=== PATIENT | male | born 1990 | race African-American/Black ===

== ENCOUNTER 2022-09-24 07:13 | Emergency (ER) | payer BC, OTHER ==
[2022-09-24] MEDS ORDERED: ACETAMINOPHEN 500 MG TABLET (FP) PO ONE (07:41)
[2022-09-24 08:45] VITALS: RESP 20; BMI 26.6
[2022-09-24 09:18] VITALS: BP 108/42; PULSE 93; TEMP 100.3
== END 2022-09-24 09:43 | disposition home or self-care (01) ==
LOC: JER 07:13
DX: U07.1 COVID-19 (principal)
CPT/HCPCS: 0241U-QW; 71046-TC-FY; 99284-25